=== PATIENT | male | born 1960 | race Caucasian/White ===

== ENCOUNTER 2022-03-13 10:18 | Inpatient (IN) ==
[2022-03-13 10:50] LABS: Basophils # (auto) 0.09 K/uL (0-0.2); Basophils % (auto) 0.8 %; Eosinophils # (auto) 0.13 K/uL (0-0.50); Eosinophils % (auto) 1.1 %; Hematocrit (blood only) 45.7 % (40.1-51.0); Hemoglobin 15.4 g/dl (14.0-18.0); Immature Granulocytes # (auto) 0.05 K/uL (0.00-0.02); Immature Granulocytes % (auto) 0.4 %; Lymphocytes # (auto) 2.38 K/uL (1.2-3.4); Lymphocytes % (auto) 20.8 %; Mean Corpuscular Hemoglobin 30.3 pg (25.0-34.0); Mean Corpuscular Hgb Conc 33.7 g/dL (32.0-36.0); Monocytes # (auto) 0.88 K/uL (0.24-0.82); Monocytes % (auto) 7.7 %; Neutrophils # (auto) 7.89 K/uL (1.4-6.5); Neutrophils % (auto) 69.2 %; Platelet Count 319 K/uL (130-400); RDW Standard Deviation 48.9 fL (36.4-46.3); Red Blood Count 5.08 M/uL (4.63-6.08); White Blood Count 11.42 K/ul (4.8-10.8)
--- NOTE | 2022-03-13 10:51 | Emergency Department Note ---
Impression & Plan Acute systolic CHF (congestive heart failure), NORBERT (acute kidney injury), Diabetes mellitus, type II, Ischemic cardiomyopathy ED Provider Note NAME: KRISTEN SOTO AGE: 61 SEX: M : 1960 ARRIVES VIA: Walk-In INFORMANT: Patient, ED PROVIDER(S): Hayder Nelson DO CHIEF COMPLAINT: Shortness of breath and chest pain HPI: Patient is a 61-year-old male with past medical history of NV, diabetes and hyperlipidemia that presents the ER referred in by cardiology. Over the past month he has been having worsening shortness of breath and chest pain specially with movement. He has been having swelling in the legs. He was seen by his PCP today and referred to cardiology who performed an echo and showed a decrease in his EF to 20%. Following this he was referred in for admission and further work-up and diuresis. PAST MEDICAL HISTORY:See Below PAST SURGICAL HISTORY:See Below FAMILY HISTORY:See Below SOCIAL HISTORY:See Below HOME MEDICATIONS:See Below ALLERGIES:See Below VITALS:See Below PHYSICAL EXAMINATION: GENERAL: Sitting up in bed, alert, well appearing, well nourished, no distress, non-toxic EYE EXAM: normal conjunctiva. OROPHARYNX: mucous membranes are moist LUNGS: Clear to auscultation. Normal chest wall mechanics HEART: no murmurs, S1 normal and S2 normal ABDOMEN: abdomen soft, non-tender, normo-active bowel sounds, no masses, no rebound or guarding. UPPER EXTREMITIES: upper extremities are grossly normal. LOWER EXTREMITIES: Pitting edema in the lower extremities NEURO EXAM: Normal sensorium, cranial nerves II-XII grossly intact, normal speech, no gross weakness of arms, no gross weakness of legs. Triage Nursing notes reviewed. Limited review of prior medical records performed Vital Signs: reviewed and remarkable for no significant abnormalities Differential diagnosis: Differential diagnoses includes but is not limited to pneumonia, bronchitis, COPD/Asthma exacerbation, pneumothorax, pulmonary embolism, congestive heart failure, acute coronary syndrome ER treatment provided: See below MEDICAL DECISION MAKING: Patient is a 61-year-old male with a past medical history of a previous NV who presents the ER with above-stated complaint. Spoke with Dr. Hawk Fenton from [facility] outpatient cardiology who saw the patient in the office and referred him in for admission. Outside records reviewed from [facility]. He was felt to be volume overloaded and the question of this secondary to ischemic cardiomyopathy causing a decrease in his EF from 40% to about 20% since his last echo. IV was established with 's day. Labs show mild leukocytosis of 11,000. No significant anemia. BMP with a mild acute kidney injury which is likely secondary to diminished EF. Glucose was slightly elevated at 200. Troponin was elevated as well at 44 which I favor is likely from ischemia as has been having off-and-on chest pain. BMP is significant elevated at 1200. Lipase was normal. COVID was negative. Upon presentation I did discuss case with the hospitalist for admission for further evaluation and admission as he was sent in from cardiology for admission and further work-up. Consultation(s): Discussed with Hawk Fenton who is the outpatient die cast die maker who referred the patient and in regards to his presentation an echo performed as an outpatient Discussed with the hospitalist in regards to the patient's referral, pre sentation and work-up. ER treatment provided: See below Diagnostics interpreted by me: -ECG: Sinus rhythm rate 87 Left axis T wave inversion in the high lateral leads QTC 469 EKG has improved from 2015 -Cardiac Monitoring: An order was placed for continuous cardiac monitoring. The monitor shows a rate of 82 with sinus rhythm. -Laboratory studies:As stated above and show below. -Imaging studies: Portable AP upright 1 view of the chest shows cephalization per my read Procedures:none Critical Care: None Past Med/Surg History Medical History (Updated 03/13/22 @ 14:07 by Hayder Nelson DO) Acute NV Diabetes mellitus, type II HTN (hypertension) Ischemic cardiomyopathy Surgical History (Updated 03/13/22 @ 10:51 by Maya Doss PA-C) Hx of heart artery stent Hx of tonsillectomy Family History (Updated 03/13/22 @ 10:51 by Maya Doss PA-C) Father Cancer Heart disease Mother Heart disease Social History (Updated 03/13/22 @ 10:52 by Maya Doss PA-C) Smoking Status: Former smoker Tobacco Type: Cigarettes and Smokeless Tobacco (Dip or Chew) Smoking End Date: 2014; Feels Safe at Home: Yes Allergies Allergies Allergy/AdvReac Type Severity Reaction Status Date / Time No Known Allergies Allergy Unverified 03/13/14 22:42 Home Meds Home Medications Medication Instructions Recorded Confirmed aspirin 81 mg capsule 81 mg PO DAILY 03/13/22 03/13/22 atorvastatin 80 mg tablet 80 mg PO DAILY 03/13/22 03/13/22 clopidogrel 75 mg tablet 75 mg PO QAM 03/13/22 03/13/22 empagliflozin 25 mg tablet 25 mg PO QAM 03/13/22 03/13/22 (Jardiance) lisinopril 20 mg tablet 20 mg PO QAM 03/13/22 03/13/22 metformin 1,000 mg tablet 1,000 mg PO BID 03/13/22 03/13/22 metoprolol succinate 100 mg 100 mg PO DAILY 03/13/22 03/13/22 tablet,extended release 24 hr multivitamin 1 tab PO DAILY 03/13/22 03/13/22 nitroglycerin 0.4 mg sublingual See Rx Instructions .Route .COMPLEX 03/13/22 03/13/22 tablet omega-3 fatty acids 1,000 mg PO DAILY 03/13/22 03/13/22 sitagliptin phosphate 100 mg tablet 100 mg PO DAILY 03/13/22 03/13/22 Results & Data (ED) Vital Signs Vital Signs - 24 hr 03/13/22 10:25 03/13/22 10:22 03/13/22 10:22 Temperature 36.5 C Temperature Source Oral Pulse Rate 88 Pulse Rate [Apical] Respiratory Rate 24 Respiratory Effort / Characteristics Short of Breath Respiratory Depth Normal Respiratory Pattern Blood Pressure 158/114 H Blood Pressure [Left Arm] Blood Pressure Mean 128 Blood Pressure Mean [Left Arm] Blood Pressure Position [Left Arm] Pulse Oximetry 96 Oxygen Delivery Method Room Air Room Air Oxygen Flow Rate 95 Sepsis Recent Fever Within 48 Hours No Sepsis New/Unexplained Change in Mental Status N/A Sepsis Action Taken by Nursing No Action Required 03/13/22 10:22 03/13/22 10:22 03/13/22 12:19 Temperature Temperature Source Pulse Rate Pulse Rate [Apical] 78 Respiratory Rate 18 18 16 Respiratory Effort / Characteristics Non-Labored Non-Labored Respiratory Depth Normal Normal Respiratory Pattern Regular Regular Blood Pressure Blood Pressure [Left Arm] 143/105 H Blood Pressure Mean Blood Pressure Mean [Left Arm] 117 Blood Pressure Position [Left Arm] Lying Pulse Oximetry 95 94 Oxygen Delivery Method Room Air Room Air Oxygen Flow Rate Sepsis Recent Fever Within 48 Hours Sepsis New/Unexplained Change in Mental Status Sepsis Action Taken by Nursing Laboratory Data 03/13/22 10:40 03/13/22 10:40 Lab Results 03/13/22 03/13/22 03/13/22 Range/Units 10:40 10:40 10:50 WBC 11.42 H (4.8-10.8) K/ul RBC 5.08 (4.63-6.08) M/uL Hgb 15.4 (14.0-18.0) g/dl Hct 45.7 (40.1-51.0) % MCV 90.0 (80.0-100.0) fL MCH 30.3 (25.0-34.0) pg MCHC 33.7 (32.0-36.0) g/dL RDW Std Deviation 48.9 H (36.4-46.3) fL RDW Coeff of Simón 15.0 H (11.5-14.5) % Plt Count 319 (130-400) K/uL MPV 10.0 (9.4-12.4) fL Immature Gran % (Auto) 0.4 % Neut % (Auto) 69.2 % Lymph % (Auto) 20.8 % [place] % (Auto) 7.7 % Eos % (Auto) 1.1 % Baso % (Auto) 0.8 % Neut # (Auto) 7.89 H (1.4-6.5) K/uL Lymph # (Auto) 2.38 (1.2-3.4) K/uL [place] # (Auto) 0.88 H (0.24-0.82) K/uL Eos # (Auto) 0.13 (0-0.50) K/uL Baso # (Auto) 0.09 (0-0.2) K/uL Immature Gran # (Auto) 0.05 H (0.00-0.02) K/uL Sodium 139 (136-145) mmol/L Potassium 4.3 (3.5-5.1) mmol/L Chloride 109 H (98-107) mmol/L Carbon Dioxide 20 L (21-32) mmol/L Anion Gap 10 (3-11) BUN 31 H (6-23) mg/dl Creatinine 1.58 H (0.6-1.4) mg/dl Est Cr Clr Drug Dosing 56.3 ml/min Est GFR ( Amer) 54.7 ml/min Est GFR (Non-Af Amer) 47.2 ml/min BUN/Creatinine Ratio 19.6 (10-20) Glucose 199 H (70-99(Fasting)) mg/dl Calcium 9.4 (8.5-10.1) mg/dl Total Bilirubin 0.8 (0.2-1.0) mg/dl AST 33 (13-39) U/L ALT 48 (7-52) U/L Alkaline Phosphatase 134 H (34-104) U/L Troponin I High Sens 44.5 H (0-20) pg/ml B-Natriuretic Peptide (0-100) pg/ml Total Protein 6.3 (6.0-8.3) gm/dl Albumin 3.9 (3.4-5.0) gm/dl Globulin 2.4 L (2.5-4.0) gm/dl Albumin/Globulin Ratio 1.6 (0.9-2) Lipase 59 (11-82) U/L SARS-CoV-2, RNA, NAAT NEGATIVE (NEGATIVE) 03/13/22 Range/Units 11:18 WBC (4.8-10.8) K/ul RBC (4.63-6.08) M/uL Hgb (14.0-18.0) g/dl Hct (40.1-51.0) % MCV (80.0-100.0) fL MCH (25.0-34.0) pg MCHC (32.0-36.0) g/dL RDW Std Deviation (36.4-46.3) fL RDW Coeff of Simón (11.5-14.5) % Plt Count (130-400) K/uL MPV (9.4-12.4) fL Immature Gran % (Auto) % Neut % (Auto) % Lymph % (Auto) % [place] % (Auto) % Eos % (Auto) % Baso % (Auto) % Neut # (Auto) (1.4-6.5) K/uL Lymph # (Auto) (1.2-3.4) K/uL [place] # (Auto) (0.24-0.82) K/uL Eos # (Auto) (0-0.50) K/uL Baso # (Auto) (0-0.2) K/uL Immature Gran # (Auto) (0.00-0.02) K/uL Sodium (136-145) mmol/L Potassium (3.5-5.1) mmol/L Chloride (98-107) mmol/L Carbon Dioxide (21-32) mmol/L Anion Gap (3-11) BUN (6-23) mg/dl Creatinine (0.6-1.4) mg/dl Est Cr Clr Drug Dosing ml/min Est GFR ( Amer) ml/min Est GFR (Non-Af Amer) ml/min BUN/Creatinine Ratio (10-20) Glucose (70-99(Fasting)) mg/dl Calcium (8.5-10.1) mg/dl Total Bilirubin (0.2-1.0) mg/dl AST (13-39) U/L ALT (7-52) U/L Alkaline Phosphatase (34-104) U/L Troponin I High Sens (0-20) pg/ml B-Natriuretic Peptide 1260 H (0-100) pg/ml Total Protein (6.0-8.3) gm/dl Albumin (3.4-5.0) gm/dl Globulin (2.5-4.0) gm/dl Albumin/Globulin Ratio (0.9-2) Lipase (11-82) U/L SARS-CoV-2, RNA, NAAT (NEGATIVE) Administered Medications Discontinued Medications Furosemide (Furosemide 40 Mg/4 Ml Vial) 40 mg IV ONE ONE Stop: 03/13/22 11:31 Last Admin: 03/13/22 11:48 Dose: 40 mg Documented By: KV Imaging Data Radiologist's Impression: Chest X-Ray 03/13/22 10:22 XR chest 1V portable CLINICAL HISTORY: Chest pain, nonspecific TECHNIQUE: Single frontal radiograph of the chest was obtained. Comparison: Comparison is made to chest radiograph 03/16/2014 FINDINGS: No lines and tubes are seen. Cardiomegaly is noted. Prominence and cephalization of the vasculature is seen. No evidence of pleural effusion or pneumothorax. IMPRESSION: Cardiomegaly and mild pulmonary edema. Previously noted nodularity of the left midlung is no longer seen. ACT 112: Negative or not required by law. Electronically signed by: Mike Arce M.D. 03/13/2022 11:00 AM Discharge Plan Visit Data Chief Complaint: Cardiac Assessment Stated Complaint: REF BY DR, POSSIBLE HEART FAILURE ED Provider: Hayder Nelson Discharge Problem: Acute systolic CHF (congestive heart failure), NORBERT (acute kidney injury), Diabetes mellitus, type II, Ischemic cardiomyopathy Forms Stand Alone Forms: My [facility] Prescriptions Prescriptions: No Action multivitamin Tablet 1 tab PO DAILY atorvastatin 80 mg tablet 80 mg PO DAILY lisinopril 20 mg tablet 20 mg PO QAM metoprolol succinate 100 mg tablet extended release 24 hr 100 mg PO DAILY clopidogrel 75 mg tablet 75 mg PO QAM metformin 1,000 mg tablet 1,000 mg PO BID nitroglycerin 0.4 mg tablet, sublingual See Rx Instructions .ROUTE .COMPLEX Rx Instructions: Place one tab under tongue, 0.4 mg sublingually for chest pain. May repeat 3 times. If chest pain continues call 911. [place] 3 Fish Oil Concentrate Capsule 1,000 mg PO DAILY sitagliptin phosphate 100 mg Tablet 100 mg PO DAILY Jardiance 25 mg tablet 25 mg PO QAM aspirin 81 mg Capsule 81 mg PO DAILY Referrals Referrals: Antoine Stephens MD [Primary Care Provider] -
--- NOTE | 2022-03-13 11:02 | XRay Report ---
XR chest 1V portable CLINICAL HISTORY: Chest pain, nonspecific TECHNIQUE: Single frontal radiograph of the chest was obtained. Comparison: Comparison is made to chest radiograph 03/16/2014 FINDINGS: No lines and tubes are seen. Cardiomegaly is noted. Prominence and cephalization of the vasculature i s seen. No evidence of pleural effusion or pneumothorax. IMPRESSION: Cardiomegaly and mild pulmonary edema. Previously noted nodularity of the left midlung is no longer s een. ACT 112: Negative or not required by law. Electronically signed by: Mike Arce M.D. 03/13/2022 11:00 AM
--- NOTE | 2022-03-13 11:09 | History & Physical Report ---
Date of Service March 13, 2022 Assessment & Plan (1) Acute systolic CHF (congestive heart failure): (2) Ischemic cardiomyopathy: (3) HTN (hypertension): (4) Dyslipidemia: Plan: - Admit to tele -Acute systolic CHF with chest pain, + GRIMALDO, orthopnea, edema BLE, CXR showing pulmonary edema - Echo reviewed personally in outpatient EPIC results from cardiology office earlier today: LVEF 20-24%, ventircular cavity moderately enlarged, severe hypo to akinesis of the anterior and septal myocardium, right ventricular cavity is severely dilated, ventricular systolic function is severely reduced, left atrium moderately enlarged, right atrium severely enlarged, moderate mitral regurg, mild tricuspid regurg, moderate pulmonary hypertension -Trend troponin, initial 44.5, check BNP -Strict I's and O's, daily weights, dry weight of 2 18-2 21, currently weighing 225, IV Lasix 40 mg IV x1 now, patient is diuretic sravan -Consult cardiology -Hold lisinopril since creatinine is elevated compared to baseline, likely will improved with diuresis due to volume overload (5) NORBERT (acute kidney injury): Plan: - Cr. 1.58, baseline is 1.0 upon review of outpatient epic chart by myself personally - will hold lisinopril - Lasix as above, will trend BMP with am labs (6) Diabetes mellitus, type II: Plan: -Hold Jardiance, Januvia, metformin -ISS with Accu-Cheks ACHS - A1c with a.m. labs DVT ppx: - teds, scds, Plavix CODE: Full code Dispo: From home, likely to remain in the hospital x 1-2 days History of Present Illness Chief Complaint: chest pain, shortness of breath Primary Care Provider: Antoine Stephens MD This is a 61-year-old male with PMHx of CAD status post anterior wall WI in [address] in place, HTN, HLD, DM type II who returns to the outpatient cardiology clinic today with complaints of shortness of breath on exertion, chest pain and was referred to the ER after having an echo completed in the office showing 20% EF. Pt notes having substernal chest pain and minimal shortness of breath which started about a month ago. He would notice the SOB with exertional activities and feels its progressing. His legs started swelling more in the past 2 day and thought this was a problem. He also admits to orthopnea which is new in the past month. He has been sleeping siting up in a recliner. Pt reports normally weighs 218-221. Here he is 5 lbs heavier and states this must have happened in the past month. Pt has not been taking baby aspirin for a couple of weeks, but has been taking plavix. He took all his other medication this morning. His daughter, Keiry is present at bedside. Allergies Allergy/AdvReac Type Severity Reaction Status Date / Time No Known Allergies Allergy Unverified 03/13/14 22:42 Home Medications Medication Instructions Recorded Confirmed Type aspirin 81 mg capsule 81 mg PO DAILY 03/13/22 03/13/22 History atorvastatin 80 mg tablet 80 mg PO DAILY 03/13/22 03/13/22 History clopidogrel 75 mg tablet 75 mg PO QAM 03/13/22 03/13/22 History empagliflozin 25 mg tablet 25 mg PO QAM 03/13/22 03/13/22 History (Jardiance) lisinopril 20 mg tablet 20 mg PO QAM 03/13/22 03/13/22 History metformin 1,000 mg tablet 1,000 mg PO BID 03/13/22 03/13/22 History metoprolol succinate 100 mg 100 mg PO DAILY 03/13/22 03/13/22 History tablet,extended release 24 hr multivitamin 1 tab PO DAILY 03/13/22 03/13/22 History nitroglycerin 0.4 mg sublingual See Rx Instructions .Route .COMPLEX 03/13/22 03/13/22 History tablet omega-3 fatty acids 1,000 mg PO DAILY 03/13/22 03/13/22 History sitagliptin phosphate 100 mg tablet 100 mg PO DAILY 03/13/22 03/13/22 History Past Med/Surg History Medical History (Updated 03/13/22 @ 11:55 by Maya Doss PA-C) Acute WI Diabetes mellitus, type II HTN (hypertension) Ischemic cardiomyopathy Surgical History (Updated 03/13/22 @ 10:51 by Maya Doss PA-C) Hx of heart artery stent Hx of tonsillectomy Family History (Updated 03/13/22 @ 10:51 by Maya Doss PA-C) Father Cancer Heart disease Mother Heart disease Social History (Updated 03/13/22 @ 10:52 by Maya Doss PA-C) Smoking Status: Former smoker Tobacco Type: Cigarettes and Smokeless Tobacco (Dip or Chew) Smoking End Date: 2014; Feels Safe at Home: Yes Review of Systems Review of Systems: Constitutional: No fever, sweats or chills Eyes: No diplopia, no worsening or blurred vision ENT: normal hearing, no trouble swallowing Respiratory: As per HPI, no cough, sputum, dyspnea at rest , + dyspnea on exertion Cardiovascular: As per HPI, currently no chest pain, tightness or palpitations Abdomen: No pain, nausea, vomiting, diarrhea or constipation Musculoskeletal: No joint pain, calf pain, + worsening lower leg swelling Neurologic: No weakness, numbness/tingling, or balance problems Psychiatric: No anxiety or depression Skin: No rash or itch Physical Exam Physical Exam: General: awake, alert, no apparent distress, obese with BMI of 36.3 Head: Normocephalic, atraumatic ENT: PERRL, EOMI, no pharyngeal exudate, mucous membranes moist Chest: on room air, sats 96%, + crackles in bases bilaterally, worse in the LLL. No wheezing or rales. Cardiac: Regular rate and rhythm, no murmur, no JVD, normal peripheral pulses, good capillary refill Abdominal: NABS x 4 quadrants, soft, + miniimally distended, nontender to palpation, no rebound or guarding Extremities: Normal inspection, 1+ peripheral edema, minimally pitting at ankles, skin is tight, no erythema, calfs nontender to palpation Psych: Normal mood and affect Neuro: AAO x 3, strength intact bilaterally and rated 5/5, no motor deficits, speech is clear, no peripheral sensory deficits Results & Data Results & Data ([facility]) Vital Signs (Past 12 Hours) Vital Signs Temp Pulse Resp BP Pulse Ox O2 Del Method O2 Flow Rate 03/13/22 10:22 18 95 Room Air 03/13/22 10:22 18 03/13/22 10:22 Room Air 95 03/13/22 10:25 36.5 C 88 24 158/114 H 96 Room Air Laboratory Results 03/13/22 03/13/22 03/13/22 10:50 10:40 10:40 WBC 11.42 H RBC 5.08 Hgb 15.4 Hct 45.7 MCV 90.0 MCH 30.3 MCHC 33.7 RDW Std Deviation 48.9 H RDW Coeff of Simón 15.0 H Plt Count 319 MPV 10.0 Immature Gran % (Auto) 0.4 Neut % (Auto) 69.2 Lymph % (Auto) 20.8 [place] % (Auto) 7.7 Eos % (Auto) 1.1 Baso % (Auto) 0.8 Neut # (Auto) 7.89 H Lymph # (Auto) 2.38 [place] # (Auto) 0.88 H Eos # (Auto) 0.13 Baso # (Auto) 0.09 Immature Gran # (Auto) 0.05 H Sodium 139 Potassium 4.3 Chloride 109 H Carbon Dioxide 20 L Anion Gap 10 BUN 31 H Creatinine 1.58 H Est Cr Clr Drug Dosing 56.3 Est GFR ( Amer) 54.7 Est GFR (Non-Af Amer) 47.2 BUN/Creatinine Ratio 19.6 Glucose 199 H Calcium 9.4 Total Bilirubin 0.8 AST 33 ALT 48 Alkaline Phosphatase 134 H Troponin I High Sens 44.5 H Total Protein 6.3 Albumin 3.9 Globulin 2.4 L Albumin/Globulin Ratio 1.6 Lipase 59 SARS-CoV-2, RNA, NAAT NEGATIVE Diagnostic Findings Chest X-Ray 03/13/22 10:22 XR chest 1V portable CLINICAL HISTORY: Chest pain, nonspecific TECHNIQUE: Single frontal radiograph of the chest was obtained. Comparison: Comparison is made to chest radiograph 03/16/2014 FINDINGS: No lines and tubes are seen. Cardiomegaly is noted. Prominence and cephalization of the vasculature is seen. No evidence of pleural effusion or pneumothorax. IMPRESSION: Cardiomegaly and mild pulmonary edema. Previously noted nodularity of the left midlung is no longer seen. ACT 112: Negative or not required by law. Electronically signed by: Mike Arce M.D. 03/13/2022 11:00 AM Code Status & VTE Plan Code Status Full code-discussed with the patient at bedside Supervising Physician Co-Signing Physician Notes Pt is a 61 y/o M with hx of HTN, DMII, HLD, STEMI s/p LULU, HFmrEF admitted for acute on CHF. Pt was directly sent from cardiology office. Echo 03/13/22: EF of 20-24% with moderate pulm HTN PE: NAD, Obese pt Cardiac: normal S1/S2, ?systolic murmur Lungs: Good air entry b/l with b/l lower lobe rales L>R Abd: obese abd, soft, NT MSK: b/l severe pitting edema of LE Psych: AAOx3, normal affect A/P: Acute on CHF: -recent Echo showed EF of 20-24% - VSS - will do IV 40mg Lasix - Strict I/O - Cardiology consultation - Admit tele - Daily weight check - Trend trop - Due to NORBERT will hold Lisinopril --- trend BMP --- depending on the Cr will consider restarting the Lisinopril Other chronic conditions: plan as above Agree with A/P by Maya Doss PA-C
[2022-03-13 11:21] LABS: Troponin I High Sensitivity 44.5 pg/ml (0-20)
[2022-03-13] MEDS ORDERED: FUROSEMIDE 40 MG/4 ML VIAL IV ONE (11:30)
[2022-03-13 11:37] LABS: Albumin Globulin Ratio 1.6 (0.9-2); Albumin Level 3.9 gm/dl (3.4-5.0); BUN Creatinine Ratio 19.6 (10-20); Bilirubin,Total 0.8 mg/dl (0.2-1.0); Calcium 9.4 mg/dl (8.5-10.1); Creatinine Clr Calc Pharmacy 56.3 ml/min; Est GFR (African American) 54.7 ml/min; Est GFR (Non-African American) 47.2 ml/min; Globulin 2.4 gm/dl (2.5-4.0); Potassium 4.3 mmol/L (3.5-5.1); Total Protein 6.3 gm/dl (6.0-8.3)
--- NOTE | 2022-03-13 12:59 | Electrocardiogram Report ---
Test Reason : Blood Pressure : / mmHG Vent. Rate : 087 BPM Atrial Rate : 087 BPM P-R Int : 168 ms QRS Dur : 132 ms QT Int : 390 ms P-R-T Axes : 058 -54 119 degrees QTc Int : 469 ms Sinus rhythm with occasional Premature ventricular complexes Possible Left atrial enlargement Left axis deviation Left ventricular hypertrophy with QRS widening and repolarization abnormality Abnormal ECG When compared with ECG of 15-MAR-2014 07:10, Significant changes have occurred Confirmed by Cuauhtemoc Laurent ([id number]) on 03/13/2022 12:59:26 PM Referred By: ED Confirmed By:Cuauhtemoc Laurent
[2022-03-13] MEDS ORDERED: ACETAMINOPHEN 325 MG TAB PO PRN (14:10)
[2022-03-13] MEDS ORDERED: GLUCOSE 40% GEL 15 GM TUBE PO PRN (14:10)
[2022-03-13] MEDS ORDERED: GLUCAGON FOR INJ 1 MG VIAL SQ PRN (14:10)
[2022-03-13] MEDS ORDERED: ONDANSETRON INJ 2 MG/ML 2 ML VIAL IV PRN (14:10)
[2022-03-13] MEDS ORDERED: CARBOHYDRATES FOR HYPOGLYCEMIA PO PRN (14:10)
[2022-03-13] MEDS ORDERED: DEXTROSE 50% 50 ML SYRINGE IV PRN (14:10)
[2022-03-13] MEDS ORDERED: GLUCOSE 10 TAB/TUBE PO PRN (14:10)
--- NOTE | 2022-03-13 14:40 | Cardiology Consultation ---
Date of Consultation March 13, 2022 Assessment & Plan (1) Acute heart failure with reduced ejection fraction and diastolic dysfunction: (2) Ischemic cardiomyopathy: (3) NORBERT (acute kidney injury): Supervising Physician Co-Signing Physician Notes 61-year-old patient admitted with decline in LV systolic function and acute on chronic heart failure with reduced ejection fraction. Add topical nitrates for afterload reduction. IV diuresis with Lasix 40 mg every 12 hours. Follow daily weight, GFR, electrolytes, and fluid balance. Continue other cardiovascular medications including aspirin, clopidogrel, atorvastatin, metoprolol succinate. Hold MARCO ANTONIO inhibitor in the setting of renal insufficiency. Consider transition to Entresto during hospitalization. History of Present Illness Reason for Consultation: CHF, EF 20% Requesting Physician: Selam JAIME Attending Physician: Marni Diaz MD History of Present Illness 61-year-old patient referred from the cardiology outpatient clinic due to acute decompensated heart failure with reduced ejection fraction. Echocardiogram performed today with report listed below. Findings of markedly reduced LV systolic function. Patient lost to follow-up since 2015. Symptoms began approximately 4 weeks ago. Reports dyspnea on exertion, orthopnea, and lower extremity edema. Sleeping at night in a recliner. Significant dyspnea and chest burning noted when walking on an incline or climbing stairs. Pain-free at rest. ECG demonstrates nonspecific intraventricular conduction delay, left ventricular hypertrophy, PVCs. History of ischemic cardiomyopathy dating back to 2016 when patient suffered a anterior myocardial infarction 03/13/2014. Coronary angiography demonstrated a 99% subtotal occlusion of the proximal LAD as well as 75% stenosis of ramus intermedius in its proximal portion. Patient underwent percutaneous coronary intervention with deployment of a drug-eluting stent to the proximal LAD and balloon angioplasty of the ramus. Left ventricular ejection fraction at the time of myocardial infarction reported as 35% per LV gram. Echocardiogram during admission reporting LAD territory hypokinesis with an EF of 40-45%. Allergies Allergy/AdvReac Type Severity Reaction Status Date / Time No Known Allergies Allergy Unverified 03/13/14 22:42 Home Medications Medication Instructions Recorded Confirmed Type aspirin 81 mg capsule 81 mg PO DAILY 03/13/22 03/13/22 History atorvastatin 80 mg tablet 80 mg PO DAILY 03/13/22 03/13/22 History clopidogrel 75 mg tablet 75 mg PO QA 03/13/22 03/13/22 History empagliflozin 25 mg tablet 25 mg PO QAM 03/13/22 03/13/22 History (Jardiance) lisinopril 20 mg tablet 20 mg PO QAM 03/13/22 03/13/22 History metformin 1,000 mg tablet 1,000 mg PO BID 03/13/22 03/13/22 History metoprolol succinate 100 mg 100 mg PO DAILY 03/13/22 03/13/22 History tablet,extended release 24 hr multivitamin 1 tab PO DAILY 03/13/22 03/13/22 History nitroglycerin 0.4 mg sublingual See Rx Instructions .Route .COMPLEX 03/13/22 03/13/22 History tablet omega-3 fatty acids 1,000 mg PO DAILY 03/13/22 03/13/22 History sitagliptin phosphate 100 mg tablet 100 mg PO DAILY 03/13/22 03/13/22 History Patient History Medical History Acute NM Diabetes mellitus, type II HTN (hypertension) Ischemic cardiomyopathy Surgical History Hx of heart artery stent Hx of tonsillectomy Family History Father Cancer Heart disease Mother Heart disease Social History Smoking Status: Former smoker Tobacco Type: Cigarettes and Smokeless Tobacco (Dip or Chew) Smoking End Date: 2014; Second Hand Exposure: No; Do You Dip or Chew Tobacco: No; Tobacco Cessation Education Requested by Patient: No Hx Alcohol Use: No Hx Substance Use: No Preferred Language: Guinean Communication Ability: Effective Atmospheric Physicist Required: No Beliefs That Will Affect Care: Spiritual Current Living Situation: Spouse Other Information That Helps Us Care for You: No Feels Safe at Home: Yes Safety Concerns: Feels Safe At This Time Assistive Devices: Glasses Review of Systems Review of Systems: All systems reviewed & are unremarkable except as noted in Subjective Physical Exam Constitutional: + obese; no acute distress Respiratory: normal respiratory effort; no respiratory distress and no labored breathing Auscultation: no crackles, no rales, no rhonchi and no wheezes Cardiovascular: Rate/Rhythm: regular rate and regular rhythm Heart Sounds: normal S1 and normal S2; no murmur Vessels: radial pulses present; no JVD and no carotid bruit Extremities: + edema (2+ bilateral pretibial edema) Gastrointestinal (Abdomen): Inspection/Auscultation: abdomen normal to inspection and normal bowel sounds; abdomen not distended Percussion/Palpation: abdomen soft; abdomen nontender, no guarding and abdomen not rigid Neurologic: CN's II-XI intact bilaterally and moves all extremities; no focal motor deficits Psychiatric: A+Ox3, euthymic affect Results & Data ([facility]) Vital Signs (Past 12 Hours) Vital Signs Temp Pulse Pulse Resp BP BP Pulse Ox 03/13/22 14:24 85 18 155/118 H 98 03/13/22 14:00 89 16 155/118 H 92 03/13/22 12:19 78 16 143/105 H 94 03/13/22 10:22 18 95 03/13/22 10:22 18 03/13/22 10:22 03/13/22 10:25 36.5 C 88 24 158/114 H 96 O2 Del Method O2 Flow Rate 03/13/22 14:24 Room Air 03/13/22 14:00 Room Air 03/13/22 12:19 Room Air 03/13/22 10:22 Room Air 03/13/22 10:22 03/13/22 10:22 Room Air 95 03/13/22 10:25 Room Air Diagnostic Findings 2D echocardiogram report 03/13/2022: The left ventricular cavity size is moderately enlarged. Severe hypo to akinesis of the anterior and septal myocardium. The qualitative LV ejection fraction is 20-24% (severely reduced). The right ventricular cavity is severely dilated. The right ventricular systolic function is severely reduced . The left atrium is moderately enlarged. The right atrium is severely enlarged. Moderate mitral regurgitation is present. Mild tricuspid regurgitation is present. Moderate pulmonary hypertension
[2022-03-13] MEDS: INSULIN ASPART PER UNIT SC SCH ×3 (14:42→21:50)
[2022-03-13] MEDS: NITROGLYCERIN 2% OINTMENT 30GM TUBE EXT SCH ×2 (17:10→22:04)
[2022-03-14] MEDS: NITROGLYCERIN 2% OINTMENT 30GM TUBE EXT SCH ×4 (04:09→21:23)
[2022-03-14 05:16] LABS: Hemoglobin 14.8 g/dl (14.0-18.0); Mean Corpuscular Hgb Conc 33.6 g/dL (32.0-36.0); Mean Corpuscular Volume 89.2 fL (80.0-100.0); Mean Platelet Volume 9.8 fL (9.4-12.4); Platelet Count 295 K/uL (130-400); RDW Standard Deviation 47.9 fL (36.4-46.3); Red Blood Count 4.93 M/uL (4.63-6.08); White Blood Count 11.25 K/ul (4.8-10.8)
[2022-03-14 06:13] LABS: BUN Creatinine Ratio 24.8 (10-20); Calcium 8.5 mg/dl (8.5-10.1); Chol HDL Ratio 2.5 (0-5); Est GFR (African American) 78.6 ml/min; Est GFR (Non-African American) 67.8 ml/min; Potassium 3.7 mmol/L (3.5-5.1)
[2022-03-14 07:24] LABS: Estimated Average Glucose 134 mg/dl; Hemoglobin A1C 6.3 % (4.5-5.6)
[2022-03-14] MEDS: CLOPIDOGREL BISULFATE 75 MG TAB PO SCH (08:15)
[2022-03-14] MEDS: ATORVASTATIN 40 MG TAB PO SCH (08:15)
[2022-03-14] MEDS: METOPROLOL SUCC 50MG EXT REL TAB PO SCH (08:15)
[2022-03-14] MEDS: OMEGA-3 (PURIFIED FISH OIL) 1 GM CAP PO SCH (08:15)
[2022-03-14] MEDS: ASPIRIN 81 MG ECTAB PO SCH (08:15)
[2022-03-14] MEDS: FUROSEMIDE 40 MG/4 ML VIAL IV SCH ×2 (08:18→20:44)
[2022-03-14] MEDS: INSULIN ASPART PER UNIT SC SCH ×4 (09:00→20:44)
[2022-03-14] MEDS: lisinopril 20 MG TAB PO SCH (10:13)
[2022-03-14] MEDS ORDERED: POTASSIUM CHLORIDE CRTAB 20 MEQ TABCR PO STA (10:52)
--- NOTE | 2022-03-14 10:52 | Cardiology Progress Note ---
Date of Service March 14, 2022 Assessment & Plan (1) Acute heart failure with reduced ejection fraction and diastolic dysf unction: (2) Ischemic cardiomyopathy: (3) NORBERT (acute kidney injury): Plan Significant diuresis noted with 2 doses of IV Lasix. Clinical status improved. Blood pressure trending downward. Recommend restart lisinopril 20 mg daily. Continue IV Lasix 40 mg twice daily. Consider addition of Aldactone tomorrow pending review of a.m. labs. Give 20 mEq oral potassium today. Monitor daily weight, fluid balance, GFR, and electrolytes. Admission and Anticipated Discharge Date Admission Date: March 13, 2022 Subjective Patient seen and examined at the bedside. Fluid balance negative more than 5 L. Renal function has improved. Edema and respiratory status improving. Blood pressure trending downward. No palpitations. Offers no other concerns/complaints. Review of Systems Review of Systems: All systems reviewed & are unremarkable except as noted in Subjective Physical Exam Constitutional: + obese; no acute distress Respiratory: normal respiratory effort; no respiratory distress and no labored breathing Auscultation: no crackles, no rales, no rhonchi and no wheezes Cardiovascular: Rate/Rhythm: regular rate and regular rhythm Heart Sounds: normal S1 and normal S2; no murmur Vessels: radial pulses present; no JVD and no carotid bruit Extremities: + edema (1+ bilateral pretibial edema) Gastrointestinal (Abdomen): Inspection/Auscultation: abdomen normal to inspection and normal bowel sounds; abdomen not distended Percussion/Palpation: abdomen soft; abdomen nontender, no guarding and abdomen not rigid Neurologic: CN's II-XI intact bilaterally and moves all extremities; no focal motor deficits Psychiatric: A+Ox3, euthymic affect Results & Data ([facility]) Vital Signs (Past 12 Hours) Vital Signs Pulse Resp BP Pulse Ox O2 Del Method O2 Flow Rate 03/14/22 08:23 Nasal Cannula 1 03/14/22 08:00 81 20 169/133 H 97 Nasal Cannula 1 03/14/22 08:00 169/133 H 03/14/22 05:00 74 20 158/110 H 98 Nasal Cannula 1 03/14/22 03:00 69 22 131/94 93 Nasal Cannula 1 03/14/22 02:03 75 24 148/113 H 97 Nasal Cannula 1 03/14/22 00:00 70 14 97 03/14/22 00:00 166/128 H 03/13/22 23:30 62 14 96 03/13/22 23:00 81 18 165/126 H 95 Nasal Cannula 1
--- NOTE | 2022-03-14 15:08 | Electrocardiogram Report ---
Test Reason : Blood Pressure : / mmHG Vent. Rate : 080 BPM Atrial Rate : 080 BPM P-R Int : 178 ms QRS Dur : 138 ms QT Int : 418 ms P-R-T Axes : 055 -47 122 degrees QTc Int : 482 ms Sinus rhythm with Premature supraventricular complexes and with occasional Premature ventricular comp lexes Possible Left atrial enlargement Left axis deviation Left ventricular hypertrophy with repolarization abnormality with QRS widening Abnormal ECG When compared with ECG of 13-MAR-2022 10:30, Premature supraventricular complexes are now Present Confirmed by Cuauhtemoc Laurent ([id number]) on 03/14/2022 3:08:01 PM Referred By: REFERRED SELF Confirmed By:Cuauhtemoc Laurent
--- NOTE | 2022-03-14 16:53 | Hospitalist Progress Note ---
Date of Service March 14, 2022 Assessment & Plan (1) Acute systolic CHF (congestive heart failure): Plan: - TTE from outpatient EPIC results from cardiology office 03/13/2022: LVEF 20-24%, ventircular cavity moderately enlarged, severe hypo to akinesis of the anterior and septal myocardium, right ventricular cavity is severely dilated, ventricular systolic function is severely reduced, left atrium moderately enlarged, right atrium severely enlarged, moderate mitral regurg, mild tricuspid regurg, moderate pulmonary hypertension -Lasix 40mg IV BID, lisinopril 20mg restarted today. -Appreciate Cardiology input (2) Ischemic cardiomyopathy: (3) HTN (hypertension): (4) Dyslipidemia: (5) NORBERT (acute kidney injury): Plan: Likely cardiorenal -Improved with diuresis -Lisinopril resumed today -monitor while on lasix (6) Diabetes mellitus, type II: Plan: -Hold Jardiance, Januvia, metformin -ISS with Accu-Cheks ACHS - A1c with a.m. labs DVT ppx: - teds, scds, Plavix CODE: Full code Dispo: From home, likely to remain in the hospital x 1-2 days Admission and Anticipated Discharge Date Admission Date: March 13, 2022 Subjective Breathing feels better but not completely back to normal Reports history of intermittent chest pain but none currently Still with leg swelling Diuresing well Physical Exam Physical Exam: Pleasant, comfortable, no acute distress Constitutional: Normocephalic, atraumatic, mucous membrane moist Respiratory: Breathing comfortably on room air, no wheezing/rhonchi/rales Cardiovascular: Regular rate and rhythm, no murmurs/rubs/gallops Gastrointestinal (Abdomen): Increased abdominal girth Musculoskeletal: trace edema Results & Data Results & Data ([facility]) Vital Signs (Past 12 Hours) Vital Signs Temp Pulse Pulse Resp BP BP BP 03/14/22 16:26 36.5 C 69 18 145/100 H 03/14/22 14:30 03/14/22 12:23 134/96 143/106 H 03/14/22 11:00 03/14/22 10:50 36.9 C 77 24 153/108 H 03/14/22 08:23 03/14/22 08:00 81 20 169/133 H 03/14/22 08:00 169/133 H 03/14/22 05:00 74 20 158/110 H Pulse Ox Pulse Ox O2 Del Method O2 Flow Rate O2 Flow Rate 03/14/22 16:26 94 Room Air 03/14/22 14:30 94 0 03/14/22 12:23 03/14/22 11:00 Room Air 03/14/22 10:50 95 Room Air 03/14/22 08:23 Nasal Cannula 1 03/14/22 08:00 97 Nasal Cannula 1 03/14/22 08:00 03/14/22 05:00 98 Nasal Cannula 1
[2022-03-15] MEDS: NITROGLYCERIN 2% OINTMENT 30GM TUBE EXT SCH ×2 (03:38→10:56)
[2022-03-15 06:59] LABS: BUN Creatinine Ratio 28.3 (10-20); Calcium 8.4 mg/dl (8.5-10.1); Creatinine Clr Calc Pharmacy 89.8 ml/min; Est GFR (African American) 96.2 ml/min; Magnesium 2.1 mg/dl (1.7-2.4); Potassium 3.6 mmol/L (3.5-5.1)
[2022-03-15] MEDS: INSULIN ASPART PER UNIT SC SCH ×4 (08:16→19:38)
[2022-03-15] MEDS: ATORVASTATIN 40 MG TAB PO SCH (08:17)
[2022-03-15] MEDS: ASPIRIN 81 MG ECTAB PO SCH (08:17)
[2022-03-15] MEDS: POTASSIUM CHLORIDE CRTAB 20 MEQ TABCR PO SCH ×2 (08:17→14:51)
[2022-03-15] MEDS: CLOPIDOGREL BISULFATE 75 MG TAB PO SCH (08:17)
[2022-03-15] MEDS: METOPROLOL SUCC 50MG EXT REL TAB PO SCH (08:18)
[2022-03-15] MEDS: OMEGA-3 (PURIFIED FISH OIL) 1 GM CAP PO SCH (08:18)
[2022-03-15] MEDS: FUROSEMIDE 40 MG/4 ML VIAL IV SCH ×2 (08:19→19:39)
[2022-03-15] MEDS: lisinopril 20 MG TAB PO SCH (10:16)
[2022-03-15] MEDS: SPIRONOLACTONE 25 MG TAB PO SCH (10:16)
--- NOTE | 2022-03-15 10:29 | Cardiology Progress Note ---
Date of Service March 15, 2022 Assessment & Plan (1) Acute heart failure with reduced ejection fraction and diastolic dysf unction: (2) Ischemic cardiomyopathy: (3) NORBERT (acute kidney injury): Plan Continue IV diuresis. Repeat limited echocardiogram in a.m. for reassessment of LV systolic function. Consider referral for LifeVest pending review. Add Aldactone 25 mg daily. Continue lisinopril, metoprolol, and topical nitrates. Reduce potassium supplementation to 20 mEq twice daily with addition of spironolactone. Monitor daily weight, fluid balance, GFR, and electrolytes. Admission and Anticipated Discharge Date Admission Date: March 13, 2022 Subjective Patient seen examined the bedside. Fluid balance negative nearly 6 L. Renal function remains stable. Respiratory status improved. Telemetry reveals sinus rhythm 70s to 80s with occasional PVCs. Review of Systems Review of Systems: All systems reviewed & are unremarkable except as noted in Subjective Physical Exam Constitutional: + obese; no acute distress Respiratory: normal respiratory effort; no respiratory distress and no labored breathing Auscultation: no crackles, no rales, no rhonchi and no wheezes Cardiovascular: Rate/Rhythm: regular rate and regular rhythm Heart Sounds: normal S1 and normal S2; no murmur Vessels: radial pulses present; no JVD and no carotid bruit Extremities: + edema (1+ bilateral pretibial edema) Gastrointestinal (Abdomen): Inspection/Auscultation: abdomen normal to inspection and normal bowel sounds; abdomen not distended Percussion/Pa lpation: abdomen soft; abdomen nontender, no guarding and abdomen not rigid Neurologic: CN's II-XI intact bilaterally and moves all extremities; no focal motor deficits Psychiatric: A+Ox3, euthymic affect Results & Data ([facility]) Vital Signs (Past 12 Hours) Vital Signs Temp Pulse Resp BP Pulse Ox O2 Del Method 03/15/22 08:00 77 21 137/80 93 Room Air 03/15/22 08:00 36.7 C 03/15/22 03:48 36.4 C L 76 18 143/91 H 94 Room Air 03/14/22 23:44 36.8 C 64 18 144/99 H 93 Room Air
--- NOTE | 2022-03-15 15:31 | Hospitalist Progress Note ---
Date of Service March 15, 2022 Assessment & Plan (1) Acute systolic CHF (congestive heart failure): Plan: - TTE from outpatient EPIC results from cardiology office 03/13/2022: LVEF 20-24%, ventircular cavity moderately enlarged, severe hypo to akinesis of the anterior and septal myocardium, right ventricular cavity is severely dilated, ventricular systolic function is severely reduced, left atrium moderately enlarged, right atrium severely enlarged, moderate mitral regurg, mild tricuspid regurg, moderate pulmonary hypertension -Lasix 40mg IV BID, lisinopril 20mg daily--03/14/2022. Spironolactone 25mg daily today per Cardiology -Appreciate Cardiology input (2) Ischemic cardiomyopathy: (3) HTN (hypertension): (4) Dyslipidemia: (5) NORBERT (acute kidney injury): Plan: Likely cardiorenal -Improved with diuresis (6) Diabetes mellitus, type II: Plan: -Hold Jardiance, Januvia, metformin -ISS with Accu-Cheks ACHS - A1c with a.m. labs DVT ppx: - teds, scds, Plavix CODE: Full code Dispo: From home, likely to remain in the hospital x 1-2 days Admission and Anticipated Discharge Date Admission Date: March 13, 2022 Subjective Feels improved. Less short of breath. leg swelling and abdominal girth is improved diuresing well Physical Exam Physical Exam: Appears well. No acute distress, non toxic appearing Respiratory: Breathing comfortably on room air, no wheezing/rhonchi/rales Cardiovascular: Regular rate and rhythm, no murmurs/rubs/gallops Gastrointestinal (Abdomen): soft, non tender, non distended Musculoskeletal: No edema Neurologic: Awake, alert, spontaneously moving extremities Results & Data Results & Data ([facility]) Vital Signs (Past 12 Hours) Vital Signs Temp Pulse Resp BP Pulse Ox O2 Del Method 03/15/22 11:30 36.8 C 03/15/22 08:00 77 21 137/80 93 Room Air 03/15/22 08:00 36.7 C 03/15/22 03:48 36.4 C L 76 18 143/91 H 94 Room Air
[2022-03-15] MEDS ORDERED: POTASSIUM CHLORIDE CRTAB 20 MEQ TABCR PO SCH (21:00)
[2022-03-16 06:54] LABS: BUN Creatinine Ratio 26.7 (10-20); Calcium 8.6 mg/dl (8.5-10.1); Creatinine Clr Calc Pharmacy 84.6 ml/min; Est GFR (African American) 89.6 ml/min; Est GFR (Non-African American) 77.3 ml/min; Magnesium 2.3 mg/dl (1.7-2.4); Potassium 3.8 mmol/L (3.5-5.1)
[2022-03-16] MEDS ORDERED: POTASSIUM CHLORIDE CRTAB 20 MEQ TABCR PO STA ×2 (07:44→11:08)
[2022-03-16] MEDS: FUROSEMIDE 40 MG/4 ML VIAL IV SCH ×2 (07:49→20:18)
[2022-03-16] MEDS: INSULIN ASPART PER UNIT SC SCH ×4 (07:49→20:14)
[2022-03-16] MEDS: SPIRONOLACTONE 25 MG TAB PO SCH (07:50)
[2022-03-16] MEDS: OMEGA-3 (PURIFIED FISH OIL) 1 GM CAP PO SCH (07:50)
[2022-03-16] MEDS: lisinopril 20 MG TAB PO SCH (07:50)
[2022-03-16] MEDS: ASPIRIN 81 MG ECTAB PO SCH (07:50)
[2022-03-16] MEDS: METOPROLOL SUCC 50MG EXT REL TAB PO SCH (07:50)
[2022-03-16] MEDS: ATORVASTATIN 40 MG TAB PO SCH (07:50)
[2022-03-16] MEDS: CLOPIDOGREL BISULFATE 75 MG TAB PO SCH (07:50)
--- NOTE | 2022-03-16 11:08 | Cardiology Progress Note ---
Date of Service March 16, 2022 Assessment & Plan (1) Acute heart failure with reduced ejection fraction and diastolic dysf unction: (2) Ischemic cardiomyopathy: (3) NROBERT (acute kidney injury): Plan Repeat echocardiogram demonstrates mild improvement of LV systolic function. Left ventricular ejection fraction is now 25-30%. Recommend continue IV furosemide for an additional 24 hours. Consider transition to oral furosemide in the next 24 to 48 hours pending clinical course. Continue Aldactone, lisinopril, and metoprolol succinate. Repeat basic metabolic panel in a.m. Due to reduced ejection fraction, recommend fitting patient for "LifeVest" prior to discharge. Recommend 20 mEq of potassium today. Monitor daily weight, fluid balance, GFR, and electrolytes. Admission and Anticipated Discharge Date Admission Date: March 13, 2022 Subjective Patient seen examined at the bedside. Continues to improve. Fluid balance -2 L. Renal function remains stable. Telemetry reveals sinus rhythm. Review of Systems Review of Systems: All systems reviewed & are unremarkable except as noted in Subjective Physical Exam Constitutional: + obese; no acute distress Respiratory: normal respiratory effort; no respiratory distress and no labored breathing Auscultation: no crackles, no rales, no rhonchi and no wheezes Cardiovascular: Rate/Rhythm: regular rate and regular rhythm Heart Sounds: normal S1 and normal S2; no murmur Vessels: radial pulses present; no JVD and no carotid bruit Extremities: + edema (1+ bilateral pretibial edema) Gastrointestinal (Abdomen): Inspection/Auscultation: abdomen normal to inspection and normal bowel sounds; abdomen not distended Percussion/Palpation: abdomen soft; abdomen nontender, no guarding and abdomen not rigid Neurologic: CN's II-XI intact bilaterally and moves all extremities; no focal motor deficits Psychiatric: A+Ox3, euthymic affect Results & Data ([facility]) Vital Signs (Past 12 Hours) Vital Signs Temp Pulse Pulse Resp BP Pulse Ox O2 Del Method 03/16/22 08:07 36.4 C L 67 19 129/89 93 Room Air 03/16/22 02:51 36.4 C L 72 18 132/91 92 Room Air 03/15/22 23:57 67
--- NOTE | 2022-03-16 17:53 | Hospitalist Progress Note ---
Date of Service March 16, 2022 Assessment & Plan (1) Acute systolic CHF (congestive heart failure): Plan: - TTE from outpatient EPIC results from cardiology office 03/13/2022: LVEF 20-24%, ventircular cavity moderately enlarged, severe hypo to akinesis of the anterior and septal myocardium, right ventricular cavity is severely dilated, ventricular systolic function is severely reduced, left atrium moderately enlarged, right atrium severely enlarged, moderate mitral regurg, mild tricuspid regurg, moderate pulmonary hypertension -repeat TTE today with improved EF to 25-30% -appreciate cardiology input, continue parenteral diuresis through today and likely switch to oral lasix tomorrow. On lisinopril 20mg daily, Toprol 100mg daily, spironolactone 25mg daily -plan for Life Vest fitting prior to discharge (2) Ischemic cardiomyopathy: (3) HTN (hypertension): (4) Dyslipidemia: (5) NORBERT (acute kidney injury): Plan: Likely cardiorenal -Improved with diuresis (6) Diabetes mellitus, type II: Plan: -Hold Jardiance, Januvia, metformin -ISS with Accu-Cheks ACHS - A1c with a.m. labs DVT ppx: - teds, scds, Plavix CODE: Full code Dispo: From home, likely discharge home tomorrow Admission and Anticipated Discharge Date Admission Date: March 13, 2022 Subjective Breathing improved, swelling improved Diuresing well Physical Exam Physical Exam: sitting in chair, pleasant and comfortable Respiratory: breathing comfortably on room air, no wheezing/rhonchi/rales Cardiovascular: regular rate and rhythm, no murmurs/rubs/gallops Gastrointestinal (Abdomen): soft, non tender, non distended Musculoskeletal: trace edema Neurologic: awake, alert, spontaneously moving extremities Results & Data Results & Data ([facility]) Vital Signs (Past 12 Hours) Vital Signs Temp Pulse Pulse Resp BP BP Pulse Ox 03/16/22 16:36 36.8 C 72 18 136/85 100 03/16/22 15:26 03/16/22 15:02 66 03/16/22 11:19 36.4 C L 54 L 18 120/85 93 03/16/22 08:07 36.4 C L 67 19 129/89 93 O2 Del Method 03/16/22 16:36 Room Air 03/16/22 15:26 Room Air 03/16/22 15:02 03/16/22 11:19 Room Air 03/16/22 08:07 Room Air
[2022-03-17] MEDS: INSULIN ASPART PER UNIT SC SCH ×2 (08:03→11:57)
[2022-03-17] MEDS: lisinopril 20 MG TAB PO SCH (08:04)
[2022-03-17] MEDS: ATORVASTATIN 40 MG TAB PO SCH (08:04)
[2022-03-17] MEDS: CLOPIDOGREL BISULFATE 75 MG TAB PO SCH (08:04)
[2022-03-17] MEDS: SPIRONOLACTONE 25 MG TAB PO SCH (08:04)
[2022-03-17] MEDS: ASPIRIN 81 MG ECTAB PO SCH (08:05)
[2022-03-17] MEDS: OMEGA-3 (PURIFIED FISH OIL) 1 GM CAP PO SCH (08:05)
[2022-03-17] MEDS: METOPROLOL SUCC 50MG EXT REL TAB PO SCH (08:05)
[2022-03-17] MEDS: FUROSEMIDE 40 MG/4 ML VIAL IV SCH (08:12)
[2022-03-17 08:37] LABS: BUN Creatinine Ratio 25.9 (10-20); Creatinine Clr Calc Pharmacy 79.4 ml/min; Est GFR (African American) 82.9 ml/min; Est GFR (Non-African American) 71.5 ml/min; Magnesium 2.2 mg/dl (1.7-2.4); Potassium 4.1 mmol/L (3.5-5.1)
--- NOTE | 2022-03-17 14:18 | Cardiology Progress Note ---
Date of Service March 17, 2022 Assessment & Plan (1) Acute heart failure with reduced ejection fraction and diastolic dysf unction: (2) Ischemic cardiomyopathy: (3) NORBERT (acute kidney injury): Plan Repeat echocardiogram demonstrates mild improvement of LV systolic function. Left ventricular ejection fraction is now 25-30%. Recommend continue IV furosemide for an additional 24 hours. Consider transition to oral furosemide in the next 24 to 48 hours pending clinical course. Continue Aldactone, lisinopril, and metoprolol succinate. Repeat basic metabolic panel in a.m. Due to reduced ejection fraction, recommend fitting patient for "LifeVest" prior to discharge. Patient now 15 L negative since admission Patient no longer examines as volume overloaded DC home with Lasix 40 mg p.o. daily in the a.m. with [employer] afternoon dose as well Potassium 20 mEq daily along with close follow-up with PCP and repeat BMP in 1 week as outpatient Admission and Anticipated Discharge Date Admission Date: March 13, 2022 Subjective Patient seen and examined. Chart reviewed. Telemetry reviewed. No complaints overnight states that he is anxious for discharge. Has received instructions on LifeVest and is comfortable with the device. Review of Systems Review of Systems: All systems reviewed & are unremarkable except as noted in HPI & below Physical Exam Physical Exam: General: Awake, alert and oriented x 3. No acute distress. HEENT: Normocephalic, atraumatic. Pupils equal, round and reactive to light and accommodation. Extraocular muscles are intact. Anicteric sclera. Moist mucous membranes. Neck: No JVD. No bruit. Cardiovascular: Regular. Positive S-4. Normal S-1 and S-2. No S-3. 3/6 holosystolic ejection murmur, left sternal border, mid-clavicular line with radiation to the axilla. No rubs. Pulmonary: Clear to auscultation bilaterally. No rales, rhonchi, or wheezing. Abdomen: Bowel sounds x 4, soft. No rebound, guarding or tenderness. No organomegaly. Extremities: No clubbing, cyanosis or edema. +2 pedal pulses bilaterally. Skin: Warm and dry. Results & Data ([facility]) Vital Signs (Past 12 Hours) Vital Signs Temp Pulse Resp BP Pulse Ox O2 Del Method 03/17/22 11:55 36.2 C L 67 18 124/87 96 Room Air 03/17/22 08:06 36.3 C L 66 18 139/94 96 Room Air 03/17/22 02:43 36.6 C 66 18 133/82 95 Room Air
--- NOTE | 2022-03-17 15:30 | Discharge Summary ---
Date of Service March 17, 2022 Admission HPI Per Admitting Provider This is a 61-year-old male with PMHx of CAD status post anterior wall OR in [address], HTN, HLD, DM type II who returns to the outpatient cardiology clinic today with complaints of shortness of breath on exertion, chest pain and was referred to the ER after having an echo completed in the office showing 20% EF. Pt notes having substernal chest pain and minimal shortness of breath which started about a month ago. He would notice the SOB with exertional activities and feels its progressing. His legs started swelling more in the past 2 day and thought this was a problem. He also admits to orthopnea which is new in the past month. He has been sleeping siting up in a recliner. Pt reports normally weighs 218-221. Here he is 5 lbs heavier and states this must have happened in the past month. Pt has not been taking baby aspirin for a couple of weeks, but has been taking plavix. He took all his other medication this morning. His daughter, Keiry is present at bedside. Principal Diagnosis Acute on chronic systolic CHF NORBERT Discharge Exam Appears well, ambulating independently in room with no difficulty Respiratory Breathing comfortably on room air Cardiovascular Regular Rate and rhythm Musculoskeletal No edema Discharge Data Allergies Allergy/AdvReac Type Severity Reaction Status Date / Time No Known Allergies Allergy Unverified 03/13/14 22:42 Consultations 03/13/22 10:46 ED Decision to Admit Stat 03/13/22 14:10 Consult Cardiology Routine Hospital Course (1) Ischemic cardiomyopathy: (2) HTN (hypertension): (3) Dyslipidemia: (4) NORBERT (acute kidney injury): (5) Diabetes mellitus, type II: (6) CHF (congestive heart failure): Plan Mr Fabián Nash is a 61 year old man with history of CAD with ischemic cardiomyopathy, with chronic systolic CHF and DM admitted 1/3 for worsening ejection fraction seen on outpatient echo with associated leg swelling, increased abdominal girth and dyspnea. He was found to have acute on chronic systolic CHF. He was placed on parenteral diuresis and responded well. He diuresed close to 15L net negative while here. He had a repeat TTE which showed an improved EF to 25-30%. He was seen by Cardiology while here and his medications were optimized. He was also started on spironalactone 25mg daily prior to discharge. He was also fitted for a life vest. With diuresis, his symptoms improved and at the time of discharge he was Euvolemic. Breathing comfortably on room air and felt back to baseline. Total Time Total Time Spent Total Time Spent (In Minutes): 35 Discharge Plan Discharge Items Patient Disposition: Home - Self-Care Reason For Visit: CHF,ISCHEMIC CARDIOMYOPATHY Discharge Diagnosis: Acute on chronic systolic CHF NORBERT Condition on Discharge: Good Activity: Resume your previous activity Non-emergency contact: Primary Care Provider and Telecommunications Operator Call non-emergency contact if: you have any medication questions and your symptoms worsen Follow-up/Referrals: Scott Erazo DO [Telecommunications Operator] - (Date & Time 03/22/2022 9:00 AM Provider Scott Erazo DO Department Cardiology, [facility] ) Antoine Stephens MD [Primary Care Provider] - (Date & Time 03/22/2022 11:20 AM Provider Dominique Giles MD Department [facility] Please note that your previously scheduled appointment with Dr Stephens on 03/22/22 @ 0740 has been cancelled) Diet: Heart Healthy Fluids: 1800ml (7 cups) Addtl Attending Provider Instructions: Please follow up with Cardiology in office You need a repeat BMP and Magnesium level in 1 week (please contact your PCP to arrange for this) If your symptoms worsen, please call your doctor for further instructions Pending Studies at Discharge: No Stand-Alone Forms: [email or web address], Smoking Cessation Medications and DC Order Prescriptions: New spironolactone 25 mg Tablet 25 mg PO QAM 30 Days Qty: 30 1RF furosemide 40 mg tablet 40 mg PO DAILY Qty: 30 1RF Continued multivitamin Tablet 1 tab PO DAILY atorvastatin 80 mg tablet 80 mg PO DAILY lisinopril 20 mg tablet 20 mg PO QAM metoprolol succinate 100 mg tablet extended release 24 hr 100 mg PO DAILY clopidogrel 75 mg tablet 75 mg PO QAM metformin 1,000 mg tablet 1,000 mg PO BID nitroglycerin 0.4 mg tablet, sublingual See Rx Instructions .ROUTE .COMPLEX Rx Instructions: Place one tab under tongue, 0.4 mg sublingually for chest pain. May repeat 3 times. If chest pain continues call 911. omega-3 fatty acids Capsule 1,000 mg PO DAILY sitagliptin phosphate 100 mg Tablet 100 mg PO DAILY Jardiance 25 mg tablet 25 mg PO QAM aspirin 81 mg Capsule 81 mg PO DAILY Discharge Orders: Discharge Order (Routine); Ordered 03/17/22 Ordered By: Faby Sinha/Other Patient Handouts: Managing Type 2 Diabetes Admission Data Admit Date/Time: 03/13/22 11:15 Attending Provider: Faby Willson Admit Provider: Maya Doss Primary Care Provider: Antoine Stephens Other Providers: Marni Diaz ; Scott Erazo
== END 2022-03-17 15:58 | disposition home or self-care (01) | DRG 291 ==
LOC: ED 10:18 → EDINP 11:15 → SUATTDRO 11:15 → 1E 14:09 → 2S 03-16 14:43